=== PATIENT | female | born 1995 | race Caucasian/White ===

== ENCOUNTER 2019-01-12 09:22 | Emergency (ER) | payer SELFPAY ==
[~2019-01-12] VITALS: Ht 167.6 cm; Wt 86.2 kg
--- NOTE | 2019-01-12 09:42 | NUR ---
PATIENT SIGNED WAIVER FORM. LMP 01/05/19. WHEELED OUT VIA [facility] FOR [facility] SCAN.
[2019-01-12] MEDS ORDERED: ACETAMINOPHEN ES 500 MG TABLET ONE (09:44)
[2019-01-12] MEDS ORDERED: IBUPROFEN 400 MG TABLET ONE (09:45)
[2019-01-12] MEDS ORDERED: ACETAMINOPHEN ES 500 MG TABLET PO ONE (10:00)
[2019-01-12] MEDS ORDERED: IBUPROFEN 400 MG TABLET PO ONE (10:00)
--- NOTE | 2019-01-12 10:00 | NUR ---
patient came back from x-ray
[2019-01-12 10:41] VITALS: BP 123/71
--- NOTE | 2019-01-12 10:41 | NUR ---
Patient discharged to home in stable condition. Written and verbal after care instructions given. Patient verbalizes understanding of instruction.
== END 2019-01-12 10:41 | disposition home or self-care (01) ==
LOC: ER 09:24
DX: S16.1XXA Strain of muscle, fascia and tendon at neck level, initial encounter (principal); S39.012A Strain of muscle, fascia and tendon of lower back, initial encounter; V49.49XA Driver injured in collision with other motor vehicles in traffic accident, initial encounter; Y93.89 Activity, other specified; Y92.413 State road as the place of occurrence of the external cause; Y99.8 Other external cause status
CPT/HCPCS: 70450; 71045; 72125; 72131; 99284; L0172